=== PATIENT | male | born 1975 | race Two or more races ===

== ENCOUNTER 2019-05-31 11:39 | Emergency (ER) | payer OTHER ==
[2019-05-31] MEDS ORDERED: CLINDAMYCIN 600 MG/D5W RTU 600 MG/50 ML RTUPB IV ONE (12:46)
--- NOTE | 2019-05-31 12:48 | ER Document Report ---
ED Medical Screen (RME) - General Chief Complaint: Foot Injury Stated Complaint: FOOT PAIN Time Seen by Provider: 05/31/19 12:29 - HPI Notes: 05/31/19 12:46 Patient is a 43-year-old male who is [place]-speaking, utilizing translation service, presents complaining of right lower anterior leg redness, pain, and swelling status post injury 7 days ago. Patient states that he was at work when a piece of a wall fell and struck his leg. Patient states that he has had increased symptoms throughout this time. Denies drug allergies. He is still able to ambulate. Patient states that he has had a low-grade temperature over the past few days as well. No chest pain or shortness of breath. No abdominal pain, nausea/vomiting/diarrhea. No other significant past medical history. I have treated and performed a rapid initial assessment of this patient. A comprehensive ED assessment and evaluation of the patient, analysis of test results and completion of medical decision making process will be conducted by additional ED providers. PHYSICAL EXAMINATION: GENERAL: Well-appearing, well-nourished and in no acute distress. A&Ox4. Answers questions appropriately. Right leg: There is significant erythema and swelling to the right anterior lower leg with tenderness associated. There is possible fluctuance associated superiorly which we will investigate with ultrasound. No posterior calf tenderness. Physical Exam - Vital signs Vitals: Temp Pulse Resp BP Pulse Ox 97.7 F 65 18 159/81 H 99 05/31/19 12:20 05/31/19 12:20 05/31/19 12:20 05/31/19 12:20 05/31/19 12:20 Course - Vital Signs Vital signs: Temp Pulse Resp BP Pulse Ox 97.7 F 65 18 159/81 H 99 05/31/19 12:20 05/31/19 12:20 05/31/19 12:20 05/31/19 12:20 05/31/19 12:20
[2019-05-31 13:23] LABS: ABSOLUTE EOSINOPHILS # (AUTO) 0.4 10^3/uL (0.0-0.6); ABSOLUTE LYMPHOCYTES (AUTO) 2.4 10^3/uL (0.5-4.7); ABSOLUTE MONOCYTES (AUTO) 0.8 10^3/uL (0.1-1.4); ABSOLUTE NEUT (AUTO) 6.2 10^3/uL (1.7-8.2); BASOPHILS % (AUTO) 0.4 % (0-2); EOSINOPHILS % (AUTO) 4.5 % (0-6); HEMATOCRIT 41.1 % (37.9-51.0); HEMOGLOBIN 14.3 g/dL (13.5-17.0); LYMPHOCYTES % (AUTO) 24.5 % (13-45); MEAN CORPUSCULAR HEMOGLOBIN 32.4 pg (27.0-33.4); MEAN CORPUSCULAR HGB CONC 34.9 g/dL (32.0-36.0); MEAN CORPUSCULAR VOLUME 93 fl (80-97); MONOCYTES % (AUTO) 7.9 % (3-13); PLATELET COUNT 250 10^3/uL (150-450); RED BLOOD COUNT 4.43 10^6/uL (4.35-5.55); RED CELL DISTRIBUTION WIDTH 12.9 % (11.5-14.0); SEGMENTED NEUTROPHILS % (AUTO) 62.7 % (42-78); TOTAL CELLS COUNTED % (AUTO) 100 %; WHITE BLOOD COUNT 9.9 10^3/uL (4.0-10.5)
[2019-05-31 13:41] LABS: ALBUMIN 4.4 g/dL (3.5-5.0); ALKALINE PHOSPHATASE 77 U/L (38-126); ANION GAP 11 (5-19); ASPARTATE AMINO TRANSFERASE 32 U/L (17-59); BILIRUBIN,DIRECT 0.2 mg/dL (0.0-0.4); BILIRUBIN,TOTAL 0.7 mg/dL (0.2-1.3); BLOOD UREA NITROGEN 13 mg/dL (7-20); CALCIUM 9.5 mg/dL (8.4-10.2); CARBON DIOXIDE 28 mmol/L (22-30); CHLORIDE 103 mmol/L (98-107); GLUCOSE 115 mg/dL (75-110); POTASSIUM 4.1 mmol/L (3.6-5.0); TOTAL PROTEIN 7.9 g/dL (6.3-8.2)
--- NOTE | 2019-05-31 13:55 | RADIOLOGY REPORT (SQ) ---
EXAM DESCRIPTION: TIBIA FIBULA RIGHT COMPLETED DATE/TIME: 05/31/2019 1:23 pm REASON FOR STUDY: rt lower anterior leg pain COMPARISON: None. NUMBER OF VIEWS: Two views right tibia and fibula. LIMITATIONS: None. FINDINGS: Soft tissue swelling along the anterior magana. No underlying radiopaque foreign body. Bon es are osteopenic but without evidence of fracture or lesion. OTHER: No other significant finding. IMPRESSION: Focal magana soft tissue swelling. Otherwise negative study. TECHNICAL DOCUMENTATION: JOB ID: [id number] Reading location - IP/workstation name: [email or web address]
[2019-05-31] MEDS ORDERED: CEPHALEXIN 500 MG CAPSULE PO ONE (14:46)
[2019-05-31] MEDS ORDERED: SULFAMETHOXAZOLE/TRIMETHOPRIM 800-160 MG TABLET PO ONE (14:47)
[2019-05-31] MEDS ORDERED: LIDOCAINE 1%/EPINEPHRINE INJ 20 ML VIAL INJ ONE (14:47)
[2019-05-31] MEDS ORDERED: DIPH/PERTUSS(ACELL)/TETANUS VAC/PF 0.5 ML SYR (>=10YO) IM ONE (14:53)
--- NOTE | 2019-05-31 14:58 | ER Document Report ---
ED Extremity Problem, Lower - General Chief Complaint: Leg Injury Stated Complaint: FOOT PAIN Time Seen by Provider: 05/31/19 12:29 Information source: Patient Notes: HPI: 43-year-old male with no past medical history who states some pain and redness with some swelling to the right anterior lower leg. No trauma. No fevers or vomiting. No history of abscess previously. Patient is not a diabetic. No aggravating relieving factors. No weakness or numbness. ROS: See HPI All other review of systems reviewed and otherwise negative Reviewed vital signs and nursing note as charted by RN. PHYSICAL EXAM: CONSTITUTIONAL: Alert and oriented and responds appropriately to questions. Well-appearing; well-nourished HEAD: Normocephalic; atraumatic CARD: Regular rate and rhythm; no murmurs; symmetric distal pulses RESP: Normal chest excursion without splinting or tachypnea; breath sounds clear and equal bilaterally BACK: The back appears normal and is non-tender to palpation EXT: Patient has a circular area of fluctuance and induration with some tenderness to the right anterior magana. There is some surrounding erythema. Neurovascular intact distally with excellent plantarflexion strength and good pu lses SKIN: See above NEURO: See above PSYCH: The patient's mood and manner are appropriate. Grooming and personal hygiene are appropriate. TRAVEL OUTSIDE OF THE [place] IN LAST 30 DAYS: No - Related Data Allergies/Adverse Reactions: No Known Allergies Allergy (Unverified 05/31/19 12:47) Past Medical History - Social History Smoking Status: Never Smoker Chew tobacco use (# tins/day): No Drug Abuse: None Family History: Reviewed & Not Pertinent Patient has suicidal ideation: No Patient has homicidal ideation: No Physical Exam - Vital signs Vitals: Temp Pulse Resp BP Pulse Ox 97.7 F 65 18 159/81 H 99 05/31/19 12:20 05/31/19 12:20 05/31/19 12:20 05/31/19 12:20 05/31/19 12:20 Course - Re-evaluation Re-evalutation: 05/31/19 14:58 Given the above history and physical using the vice president diversity, we have explained the incision and drainage as well as the importance of antibiotics and follow- up. Patient is consented verbally. Labs were ordered in triage showing a blood glucose as recorded. Normal white blood cell count. 05/31/19 15:14 System and drainage complete. Antibiotics provided. Tetanus updated. Patient will be discharged home with strict return precautions. - Vital Signs Vital signs: Temp Pulse Resp BP Pulse Ox 97.7 F 65 18 159/81 H 99 05/31/19 12:20 05/31/19 12:20 05/31/19 12:20 05/31/19 12:20 05/31/19 12:20 - Laboratory Result Diagrams: 05/31/19 13:05 05/31/19 13:05 Laboratory results interpreted by me: 05/31/19 13:05 Glucose 115 H Procedures - Incision and Drainage Right Lower Leg Type: Simple Anesthetic type: 1% Lidocaine w/epi Blade size: 11 I&D procedure: Chlorprep applied Incision Method: Incision made with needle Notes: 05/31/19 15:14 Deloculated Discharge - Discharge Clinical Impression: Abscess of right leg Condition: Good Disposition: HOME, SELF-CARE Additional Instructions: Come back immediately with any increased redness, fever, vomiting, increased pain, or any other acute problems. Please make sure that you follow-up with the primary care physician and return here in 2 days for reassessment. Take the antibiotics as prescribed. Take the pain medications only as needed. Please keep the area clean and dry and bandaged until healing. Prescriptions: Sulfamethoxazole/Trimethoprim [Bactrim Ds Tablet] 1 each PO BID #14 tablet Cephalexin Monohydrate [Keflex 500 mg Capsule] 500 mg PO Q6H 7 Days #21 capsule Hydrocodone/Acetaminophen [Devine 5-325 mg Tablet] 1 tab PO Q6H PRN #12 tablet PRN Reason:
[2019-05-31 15:38] VITALS: BP 138/74
== END 2019-05-31 15:38 | disposition home or self-care (01) ==
LOC: ER 11:39
PROC: 0H9KXZZ Drainage of Right Lower Leg Skin, External Approach (ICD-10-PCS; principal; 2019-05-31)
DX: L02.415 Cutaneous abscess of right lower limb (principal); M79.604 Pain in right leg; M79.89 Other specified soft tissue disorders
CPT/HCPCS: 99283; 90471; 36415; 87040; 85025; 80053; 73590; 90715; 10060; A6266; J3490